=== PATIENT | female | born 1995 | race Caucasian/White ===

== ENCOUNTER 2022-03-03 05:57 | Emergency (ER) | payer OTHER ==
[~2022-03-03] VITALS: Ht 165.1 cm; Wt 81.6 kg
[2022-03-03] MEDS ORDERED: PENICILLIN VK500 MG PO (06:07)
== END 2022-03-03 06:09 | disposition home or self-care (01) ==
LOC: ED 05:57
DX: K02.9 Dental caries, unspecified (principal)

== ENCOUNTER 2022-07-08 16:35 | Emergency (ER) | payer OTHER ==
[~2022-07-08] VITALS: Ht 165.1 cm; Wt 99.8 kg
[~2022-07-08 16:35] MED LIST: PENICILLIN VK500 MG PO
[2022-07-08] MEDS ORDERED: IBU800 M2 PO (16:41)
[2022-07-08] MEDS ORDERED: CYCLOBENZAPRINE10 MG PO (16:41)
== END 2022-07-08 18:10 | disposition home or self-care (01) ==
LOC: ED 16:35
DX: S33.5XXA Sprain of ligaments of lumbar spine, initial encounter (principal); M54.2 Cervicalgia; V43.52XA Car driver injured in collision with other type car in traffic accident, initial encounter; Y93.89 Activity, other specified; Y92.410 Unspecified street and highway as the place of occurrence of the external cause; Y99.8 Other external cause status

== ENCOUNTER 2022-12-21 07:59 | Emergency (ER) | payer OTHER ==
[~2022-12-21] VITALS: Ht 165.1 cm; Wt 81.6 kg
[~2022-12-21 07:59] MED LIST changes: +AMOX-CLAV 875-1 EACH PO; +CYCLOBENZAPRINE10 MG PO; +IBU800 M2 PO; +ONDANSETRON4 MG SL
[2022-12-21 08:50] LABS: BASO % 0.6 % (0.0-1.0); EOS # 0.2 10*3/uL (0.0-0.4); EOS % 3.3 % (1.0-4.0); LYMPH # 2.3 10*3/uL (1.3-4.4); LYMPH % 36.8 % (27.0-41.0); MEAN CELL VOLUME 90.2 fl (81.0-99.0); MEAN CORPUSCULAR HGB CONC 34.4 g/dl (33.0-37.0); MEAN PLATELET VOLUME 10.1 fl (9.6-12.3); MONO # 0.3 10*3/uL (0.1-1.0); MONO % 4.3 % (3.0-9.0); NEUT # 3.5 10*3/uL (2.3-7.9); NEUT % 54.8 % (47.0-73.0); PLATELET COUNT AUTOMATED 244 10*3/uL (130-400); RED BLOOD COUNT 3.77 10*6/uL (4.10-5.10); RED CELL DISTRI WIDTH 13.6 % (0-14.5); WHITE BLOOD COUNT 6.3 10*3/uL (4.8-10.8)
[2022-12-21 09:01] LABS: ACT PARTIAL THROMBO TIME 28.5 SECONDS (20.0-32.1)
[2022-12-21 09:11] LABS: ALKALINE PHOSPHATASE 69 U/L (46-116); BUN 5 mg/dl (9-23); CHLORIDE 107 mmol/L (98-107); LIPASE 24 U/L (12-53); POTASSIUM 3.7 mmol/L (3.4-5.1); SGPT/ALT 16 U/L (10-49)
[2022-12-21 09:21] LABS: BETA-HCG, QUANT < 3.0 mIU/mL (3-10)
[2022-12-21 09:35] LABS: BILIRUBIN Negative (Negative); BLOOD Negative (Negative); CLARITY Clear (Clear); COLOR Yellow (Yellow); GLUCOSE Negative (Negative); KETONE Negative (Negative); LEUKO ESTERASE Negative (Negative); NITRITE Negative (Negative); PH 7.5 (4.5-8.0); SPECIFIC GRAVITY 1.015 (1.001-1.030)
[2022-12-21 10:00] LABS: EPITHELIAL CELLS 0-2; RBC 0-2 rbc/hpf (0-2)
== END 2022-12-21 11:57 | disposition home or self-care (01) ==
LOC: ED 07:59
PROVIDERS: Emergency Medicine
DX: R21 Rash and other nonspecific skin eruption (principal); Z20.822 Contact with and (suspected) exposure to COVID-19